=== PATIENT | female | born 1960 | race American Indian/Alaskan Native ===

== ENCOUNTER 2021-05-30 12:40 | Emergency (ER) | payer OTHER, MEDICAID, SELFPAY ==
[2021-05-30 13:14] VITALS: BP 135/78; PULSE 73; RESP 18; TEMP 36.6; O2SAT 97; BMI 31.1
--- NOTE | 2021-05-30 14:18 | ED.DENTAL ---
HPI - Dental/Oral General Chief complaint: Dental/Oral Stated complaint: mouth abscess Time Seen by Provider: 05/30/21 14:00 Source: patient Mode of arrival: ambulatory History of Present Illness HPI Narrative: 61-year-old female with no significant past medical history presenting to the ED complaining of right upper dental pain and suspected abscess x a couple days. Reports pain radiates to right ear. Denies posterior or pharyngeal swelling/difficulty swallowing, drooling or inability to handle secretions, fever, chills, cough, SOB, wheezing Admits had tooth replaced few months ago MD Complaint: tooth pain Related Data Previous Rx's Medication Instructions Recorded amoxicillin 875 mg-potassium 1 tab PO Q12H 7 Days #14 tab 05/30/21 clavulanate 125 mg tablet (Augmentin) hydrocodone 5 mg-acetaminophen 325 1 tab PO Q8H PRN 3 Days #9 tab 05/30/21 mg tablet Allergies Allergy/AdvReac Type Severity Reaction Status Date / Time No Known Allergies Allergy Verified 05/30/21 13:13 Review of Systems Review of Systems: Constitutional: No Fever, No Chills ENT/Mouth: No Ear Pain, No Nasal Congestion, No Hoarseness, No sore throat, No Rhinorrhea, No Swallowing Difficulty, +dental pain Cardiovascular: No Chest Pain, No SOB Respiratory: No Cough, No Sputum, No Wheezing Gastrointestinal: No Nausea, No Vomiting, No Diarrhea, No Constipation, No Abdominal pain Genitourinary: No Dysuria, No Urgency Musculoskeletal: No joint pain, No Myalgias, No Joint Swelling Skin: No Skin Lesions, No rash Neuro: No Weakness, No Numbness Yes all other systems are reviewed and are negative [facility] Past Medical History Attestation statement: The following information was validated with the patient. Social History Social History Advance Directives: No Advance Directives Information Provided: No Physical Exam Vital Signs: Vital Signs: Last Vital Signs Temp 97.9 F 05/30/21 13:14 Pulse 73 05/30/21 13:14 Resp 18 05/30/21 13:14 BP 135/78 05/30/21 13:14 Pulse Ox 97 05/30/21 13:14 Body Mass Index 31.1 Const: General: cooperative, healthy appearing and no acute distress Orientation/consciousness: patient oriented x3 Limitations: no limitations HENMT: Head: Yes normal to inspection and Yes atraumatic Ears: hearing grossly normal bilaterally General nose exam: Normal external nose present Face and sinus: Yes normal facial exam and Yes face symmetric Mouth: tongue normal, no drooling, normal lip and no muffled voice Teeth and gingiva: gingiva abnormal tender (above Right upper cuspid with erythema. No fluctuance/induration or cellulitis. No drainage. Mild swelling); Negative for without any purulent discharge Throat: Yes posterior oropharynx normal, Yes tonsils normal, Yes uvula midline, No peritonsillar mass, No uvula laterally displaced and No uvular edema Eyes: General: appearance normal, both eyes and all related structures EOM: EOMs intact bilaterally Neck: Neck: Yes normal visual inspection, Yes no lymphadenopathy, Yes no meningeal signs and Yes supple Resp: Effort & Inspection: normal respiratory effort and no respiratory distress Auscultation: clear to auscultation bilaterally Cardio: Rate: regular rate Heart sounds: S1 normal heart sound present and S2 normal heart sound present Skin: Rashes: no rashes Wounds: no wounds Neuro: General: patient oriented x3 and no meningeal signs Gait exam (Neuro): Normal gait present Extrem: General: Yes normal to inspection MDM - Dental/Oral MDM Narrative Medical decision making narrative: 61-year-old female with no significant past medical history presenting to the ED complaining of right upper dental pain and suspected abscess x a couple days. On exam vital signs stable, NAD/nontoxic, physical exam as above. Likely early gingival/dental abscess. Area not drainable at this time. No evidence of cellulitis Discussed with patient she needs to follow-up with her dentist KARMA, she verbalized understanding Medical Records Attestation: I reviewed the patient's medical records. Lab Data Attestation: I reviewed the patient's lab results. Discharge Plan Discharge Clinical Impression: Gingival abscess Patient Disposition: Home, Self-Care Instructions: Dental Abscess (ED), Mouth Care (ED) Additional Instructions: You Have the beginning of a dental abscess/interval obsess, Augmentin as an antibiotic, place take as prescribed [place] is no opiate pain medication, take when pain is severe for the next 3 days In addition take ibuprofen at home Please follow-up with a dentist as soon as possible If infection persists/worsens, area turns into a rossi, he developed fever or chills please return to the ED Prescriptions: New hydrocodone-acetaminophen 5-325 mg tablet 1 tab PO Q8H PRN (Reason: pain, severe) 3 Days Qty: 9 RF: 0 amoxicillin-pot clavulanate [Augmentin] 875-125 mg tablet 1 tab PO Q12H 7 Days Qty: 14 RF: 0 Referrals: Tim Rizo [Dentist] - 2 days Charly Marinelli DMD [Dentist] - 2 days George Foy DMD [Dentist] - 2 days Zoe Schaefer DMD [Dentist] - 2 days Lucas Bailey DDS [Physician] - 2 days Joce Jacob DMD [Physician] - 2 days Stand Alone Forms: Work/School Release Interventions: ED Discharge Assessment Last Done: 05/30/21 14:38 Discharge Date/Time: 05/30/21 14:39
[2021-05-30] MEDS: Amoxicillin/Potassium Clav 875 MG TABLET PO (14:31)
[2021-05-30] MEDS: NaPROXEN 500 MG TABLET PO (14:31)
== END 2021-05-30 14:39 | disposition home or self-care (01) ==
LOC: HO.ED 14:35
PROVIDERS: Emergency Provider Emergency Medicine
DX: K05.319 Chronic periodontitis, localized, unspecified severity (principal)
CPT/HCPCS: 99283; 99284

== ENCOUNTER 2021-06-04 16:26 | Emergency (ER) | payer OTHER, MEDICAID, SELFPAY ==
--- NOTE | ~2021-06-04 | XR_ITS ---
EXAMINATION: XR HAND, RIGHT CLINICAL INFORMATION: Fifth finger crush injury COMPARISON: None TECHNIQUE: PA, lateral, and oblique views of the right hand. FINDINGS: Marked degenerative changes are present at the DIP joints with milder degenerative changes at the PIP joints. There is a deformity present involving the index finger with ulnar deviation at the DIP joint. The MCP joints appear normal. Some minimal degenerative changes are present at the first PRISON joint is well as the radial carpal joints. XR/XR hand RT 2V IMPRESSION: Degenerative changes without acute injury.
--- NOTE | 2021-06-04 16:55 | ED.UPPEXIN ---
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 between the metal plate and sharp edge had small amount of bleeding complaining of pain in the right 5th finger Related Data Previous Rx's Medication Instructions Recorded amoxicillin 875 mg-potassium 1 tab PO Q12H 7 Days #14 tab 05/30/21 clavulanate 125 mg tablet (Augmentin) hydrocodone 5 mg-acetaminophen 325 1 tab PO Q8H PRN 3 Days #9 tab 05/30/21 mg tablet Allergies Allergy/AdvReac Type Severity Reaction Status Date / Time No Known Allergies Allergy Verified 05/30/21 13:13 Review of Systems Review of Systems: Yes all other systems are reviewed and are negative [facility] Social History Social History Advance Directives: No Advance Directives Information Provided: No Patient : No Physical Exam Vital Signs: Vital Signs: Last Vital Signs Temp 97.7 F 06/04/21 17:09 Pulse 73 06/04/21 17:09 Resp 16 06/04/21 17:09 BP 127/68 06/04/21 17:09 Pulse Ox 95 06/04/21 17:09 Body Mass Index 30.1 Const: General: comfortable Orientation/consciousness: patient oriented x3 Resp: Effort & Inspection: normal respiratory effort and able to speak in complete sentences Neuro: General: patient oriented x3 Extrem: Hand/finger images: 1. Tenderness at middle phalanx with superficial laceration no active bleeding no deformity MDM - Extremity Injury (Upper) MDM Narrative Medical decision making narrative: Patient has superficial laceration right 5th finger with contusion x-ray negative for fracture , laceration without any active bleeding approximated using Dermabond Procedures Laceration Laceration 1: Site: hand Side (If applicable): right Size (cm): 0.5 Description: linear Depth: simple, single layer Skin layer closed with: other (Dermabond) Discharge Plan Discharge Clinical Impression: Laceration of finger Qualifiers: Encounter type: initial encounter Finger: little finger Damage to nail status: without damage Foreign body presence: without foreign body Laterality: right Qualified Code(s): S61.216A - Laceration without foreign body of right little finger without damage to nail, initial encounter Patient Disposition: Home, Self-Care Instructions: Finger Laceration (ED) Additional Instructions: Local care as advised Prescriptions: No Action hydrocodone-acetaminophen 5-325 mg tablet 1 tab PO Q8H PRN (Reason: pain, severe) 3 Days Qty: 9 RF: 0 amoxicillin-pot clavulanate [Augmentin] 875-125 mg tablet 1 tab PO Q12H 7 Days Qty: 14 RF: 0 Stand Alone Forms: Work/School Release
[2021-06-04 17:09] VITALS: BP 127/68; PULSE 73; RESP 16; TEMP 36.5; O2SAT 95; BMI 30.1
== END 2021-06-04 18:24 | disposition home or self-care (01) ==
PROVIDERS: Emergency Provider Internal Medicine
DX: S61.216A Laceration without foreign body of right little finger without damage to nail, initial encounter (principal); W23.1XXA Caught, crushed, jammed, or pinched between stationary objects, initial encounter; Y93.G1 Activity, food preparation and clean up; Y92.233 Cafeteria of hospital as the place of occurrence of the external cause; Y99.0 Civilian activity done for income or pay
CPT/HCPCS: 12001; 73120; 99283

== ENCOUNTER 2021-06-11 10:32 | Outpatient (REF) | payer OTHER, SELFPAY ==
--- NOTE | ~2021-06-11 | XR_ITS ---
EXAMINATION: XR LUMBOSACRAL SPINE CLINICAL INFORMATION: Low back pain. COMPARISON: None TECHNIQUE: 4 views of the lumbar spine are obtained. FINDINGS: There is normal lumbar segmentation with 5 nonrib-bearing lumbar vertebrae of normal height and normal lumbar lordosis. There is no lumbar vertebral compression, spondylolisthesis, or destructive process. There is mild multilevel vertebral body spurring. Borderline disc narrowing is present at L2-L3 and L4-L5. The SI joints and visualized sacrum are unremarkable. XR/XR lumbar spine 2-3V IMPRESSION: 1. No lumbar vertebral compression or spondylolisthesis. 2. Mild degenerative disc changes L2-L3 and L4-L5.
== END 2021-06-11 10:33 | disposition home or self-care (01) ==
LOC: HO.XRAY 10:32
PROVIDERS: Visit Provider Family Medicine
DX: M51.37 Other intervertebral disc degeneration, lumbosacral region (principal)
CPT/HCPCS: 72100

== ENCOUNTER 2022-06-01 09:11 | Emergency (ER) | payer MEDICAID, SELFPAY ==
--- NOTE | ~2022-06-01 | CT_ITS ---
EXAMINATION: HEAD CT WITHOUT CONTRAST CERVICAL SPINE CT WITHOUT CONTRAST CLINICAL INFORMATION: Fall, pain. COMPARISON: None. TECHNIQUE: Contiguous axial imaging of the head was performed without the administration of IV contrast. Axial multidetector volumetric images were also performed through the cervical spine without contrast. Multiplanar reconstructed images in coronal and sagittal orientations were submitted. DOSE: 1119 mGy-cm FINDINGS: HEAD: There is artifact limiting evaluation of the inferior posterior fossa. Scattered areas of increased density in the subcalvarial brain parenchyma, suspected to be artifactual. There is no evidence of acute intracranial hemorrhage or territorial infarction. No abnormal mass-effect or midline shift. No extra-axial fluid collections. Castano to white matter differentiation is well preserved. The ventricles are normal in size and configuration. . No acute calvarial fracture. Left maxillary sinus mucocele/mucosal thickening. The sinuses otherwise and mastoid air cells are clear. CERVICAL SPINE: Cervical spine: There is anatomic alignment of the vertebral bodies and posterior elements. The atlantoaxial and atlantooccipital articulations are maintained. Vertebral body heights are maintained No evidence of acute fracture. Moderate to severe C5-C6 disc degeneration. No prevertebral soft tissue swelling. Visualized lung apices appear unremarkable. No suspicious thyroid findings.. CT/CT cervical spine wo IV con IMPRESSION: 1. No CT evidence of acute intracranial hemorrhage or edematous territorial infarction.. Artifact limiting evaluation. Short-term follow-up CT for reassessment as clinically warranted. 2. No acute fracture or malalignment in the cervical spine. 3. C5-C6 moderate to severe disc degeneration.
--- NOTE | ~2022-06-01 | XR_ITS ---
EXAMINATION: XR RIBS, RIGHT, PA CHEST CLINICAL INFORMATION: Status post fall with rib pain. COMPARISON: PET/CT scan dated 06/01/2022. TECHNIQUE: 3 views of the right ribs were obtained. FINDINGS: Lungs are clear. No consolidation, pneumothorax, or pleural effusion. The cardiomediastinal silhouette and pulmonary vasculature are normal. Osseous structures are unremarkable. Ribs are intact. No fractures are identified. XR/XR ribs RT min 3V w CXR1V IMPRESSION: Unremarkable examination.
--- NOTE | ~2022-06-01 | CT_ITS ---
EXAMINATION: CT CHEST, ABDOMEN AND PELVIS WITHOUT CONTRAST CLINICAL INFORMATION: Status post fall with rib cage and buttock pain. COMPARISON: None TECHNIQUE: Multidetector volumetric imaging was performed of the chest, abdomen and pelvis without administration of oral or intravenous contrast. Sagittal and coronal reformatted images were obtained on the technologist's workstation. Lack of intravenous and oral contrast limits visceral evaluation. This CT examination was performed using dose optimization techniques as appropriate, variously including the following: *Automated exposure control *Adjustment of mA and/or kV according to patient size (this includes techniques or standardized protocols for targeted exams where dose is matched to indication/reason for exam; i.e. extremities or head) DLP: 974 mGy-cm FINDINGS: CHEST: LUNGS/PLEURA/AIRWAYS: No focal infiltrates, pleural effusions or pneumothorax. No significant/suspicious pulmonary nodules. The airways are patent. MEDIASTINUM: The visualized thyroid gland shows a nodule posteriorly in the lower pole measuring 1.5 cm (image 3, series 5). The thoracic aorta shows minimal calcifications in the arch without significant dilatation. No coronary artery calcification. No pericardial effusion. CHEST LYMPH NODES: No lymphadenopathy. SOFT TISSUES: Unremarkable. ABDOMEN/PELVIS: LIVER, GALLBLADDER, AND BILIARY TREE: Unremarkable. PANCREAS: Unremarkable. SPLEEN: Unremarkable. ADRENAL GLANDS: Unremarkable. KIDNEYS AND URETERS: The kidneys are normal in size, shape, and attenuation. No hydronephrosis, hydroureter, or calculi seen. No perinephric stranding. BLADDER: Unremarkable. GASTROINTESTINAL TRACT: The stomach, small bowel and appendix are unremarkable. The colon shows mild diverticulosis distally without surrounding abnormality. No rectal abnormality. LYMPH NODES: No lymphadenopathy. VASCULAR: Unremarkable. PELVIC VISCERA: Status post hysterectomy. No adnexal abnormality. MUSCULOSKELETAL: No acute fracture. Minimal to mild multilevel marginal osteophyte formation in the lumbar spine. SOFT TISSUES: Unremarkable. CT/CT abdomen pelvis wo IV con IMPRESSION: 1. No evidence for acute traumatic injury. 2. Incidental findings detailed above without associated abnormality.
--- NOTE | ~2022-06-01 | XR_ITS ---
EXAMINATION: XR HIP, RIGHT CLINICAL INFORMATION: Hip and pelvic pain status post fall. COMPARISON: None TECHNIQUE: Two views of the right hip. FINDINGS: Minimal right hip degenerative joint changes are seen. There is no acute fracture or dislocation. The bony pelvis is intact with the soft tissues are unremarkable. XR/XR hip RT w [id number] IMPRESSION: Minimal right hip osteoarthritis. No acute fracture.
--- NOTE | ~2022-06-01 | XR_ITS ---
EXAMINATION: XR HAND, LEFT CLINICAL INFORMATION: Finger pain status post fall. COMPARISON: None TECHNIQUE: PA, lateral, and oblique views of the left hand. An indicator arrow points to the second digit distally. FINDINGS: Mild to moderate interphalangeal, first carpal metacarpal and triscaphe degenerative joint changes are seen. There is no acute fracture or dislocation. The soft tissues are unremarkable. There is no radiopaque foreign body. XR/XR hand LT min 3V IMPRESSION: [id number] degenerative joint changes most consistent with osteoarthritis. No acute abnormality. Specifically, the second digit appears intact.
--- NOTE | ~2022-06-01 | XR_ITS ---
EXAMINATION: XR FOOT, RIGHT CLINICAL INFORMATION: Fifth metatarsal pain status post fall. COMPARISON: None TECHNIQUE: AP, lateral, and oblique views of the right foot. An indicator arrow points to the fifth metatarsal. FINDINGS: There is no acute fracture or dislocation. The base of the fifth metatarsal is intact. Minimal degenerative spurring is seen in this region. The tarsal bones are normally aligned. Very small plantar and small retrocalcaneal spurs are seen. The soft tissues are unremarkable. XR/XR foot RT min 3V IMPRESSION: No definitive acute abnormality. Specifically, the fifth metatarsal is intact. Mild degenerative spurring as detailed above.
--- NOTE | ~2022-06-01 | CT_ITS ---
EXAMINATION: HEAD CT WITHOUT CONTRAST CERVICAL SPINE CT WITHOUT CONTRAST CLINICAL INFORMATION: Fall, pain. COMPARISON: None. TECHNIQUE: Contiguous axial imaging of the head was performed without the administration of IV contrast. Axial multidetector volumetric images were also performed through the cervical spine without contrast. Multiplanar reconstructed images in coronal and sagittal orientations were submitted. DOSE: 1119 mGy-cm FINDINGS: HEAD: There is artifact limiting evaluation of the inferior posterior fossa. Scattered areas of increased density in the subcalvarial brain parenchyma, suspected to be artifactual. There is no evidence of acute intracranial hemorrhage or territorial infarction. No abnormal mass-effect or midline shift. No extra-axial fluid collections. Castano to white matter differentiation is well preserved. The ventricles are normal in size and configuration. . No acute calvarial fracture. Left maxillary sinus mucocele/mucosal thickening. The sinuses otherwise and mastoid air cells are clear. CERVICAL SPINE: Cervical spine: There is anatomic alignment of the vertebral bodies and posterior elements. The atlantoaxial and atlantooccipital articulations are maintained. Vertebral body heights are maintained No evidence of acute fracture. Moderate to severe C5-C6 disc degeneration. No prevertebral soft tissue swelling. Visualized lung apices appear unremarkable. No suspicious thyroid findings.. CT/CT head/brain wo IV con IMPRESSION: 1. No CT evidence of acute intracranial hemorrhage or edematous territorial infarction.. Artifact limiting evaluation. Short-term follow-up CT for reassessment as clinically warranted. 2. No acute fracture or malalignment in the cervical spine. 3. C5-C6 moderate to severe disc degeneration.
[2022-06-01 09:18] VITALS: BP 137/77; PULSE 90; RESP 15; TEMP 36.6; O2SAT 97; BMI 31.8
--- NOTE | 2022-06-01 10:02 | PC.NURSE ---
pt to radiology will assess when she returns
--- NOTE | 2022-06-01 10:30 | ED.FALL ---
HPI - Fall General Chief Complaint: Fall Stated Complaint: fall, back, rib pain,blood in urine Time Seen by Provider: 06/01/22 09:41 Source: patient Mode of arrival: ambulatory Limitations: no limitations History of Present Illness HPI Narrative: Debra Ga is a 62-year-old female with no pertinent past medical history that presents to the emergency department today with a chief complaint of falling down 1 flight of stairs yesterday afternoon at her home. She indicates that she slipped down a flight of stairs in her socks. She says that she hit her head, ribs, and caught her fingers in the the railing. She denies losing consciousness and was able to get relatively quickly after the fall. She denies being on any blood thinners. She says today the pain has been constant and has gotten steadily worse. She describes her pain to be sharper with movement and describes generalized stiffness all over her body. She rates the pain today as a 20/10. She has tried icing and using Tylenol of which neither have helped. She reports that she had a headache yesterday that resolved with two Tylenol and Excedrin. She also endorses musculoskeletal pain, fatigue, and some blood in her urine. She does also describe that she has chronic shortness of breath but she believes this to be unrelated to her fall. She denies fevers, sore throat, chest pain, nausea, vomiting, diarrhea or constipation. She came to the emergency room today because her fiance is concerned about her pain. complaint: fall Onset (ago): day(s) (1) Fall from: standing Place fall occurred: home Loss of consciousness: none Symptoms prior to fall: none Context: tripped/slipped Location of injury: head, neck, chest and back Location of injury - extremities: left: hand and lower leg (hip) and right: foot Severity: severe Severity scale (1-10): >10 Quality: sharp and aching Associated symptoms (after fall): headache Related Data Previous Rx's Medication Instructions Recorded amoxicillin 875 mg-potassium 1 tab PO Q12H 7 days #14 tabs 05/30/21 clavulanate 125 mg tablet (Augmentin) hydrocodone 5 mg-acetaminophen 325 1 tab PO Q8H PRN pain, severe 3 05/30/21 mg tablet days #9 tabs acetaminophen 500 mg tablet 1,000 mg PO QID PRN fever or pain 06/01/22 (Tylenol Extra Strength) #10 tabs cyclobenzaprine 10 mg tablet 10 mg PO Q8H #10 tabs 06/01/22 oxycodone 5 mg tablet 5 mg PO Q6H PRN pain #10 tabs 06/01/22 Allergies Allergy/AdvReac Type Severity Reaction Status Date / Time No Known Allergies Allergy Verified 05/30/21 13:13 Review of Systems Review of Systems: Constitutional : No Weight loss, No Fever, No Chills, No Night Sweats, Yes Fatigue, No Malaise ENT/Mouth : No Hearing loss, No Ear Pain, No Nasal Congestion, No Sinus Pain, No Hoarseness, No sore throat, No Rhinorrhea, No Swallowing Difficulty Eyes: No Eye Pain, No Swelling, No Redness, No Foreign Body, No Discharge, No Vision Changes Cardiovascular : No Chest Pain, + Chronic SOB, No Dyspnea on Exertion, No Orthopnea, No Edema, No Palpitations Respiratory : No Cough, No Sputum, No Wheezing, No Smoke Exposure, No Dyspnea Gastrointestinal : No Nausea, No Vomiting, No Diarrhea, No Constipation, No abdominal Pain, No Hematochezia, No Melena Genitourinary : no irregular bleeding, No Dysuria, No Urinary Frequency, + Hematuria, No Urinary Incontinence, No Urgency, No Flank Pain, No Urinary Flow Changes, No Hesitancy Musculoskeletal : + multiple joint pain, + Myalgias, No Joint Swelling, + Cervical and Lumbar spine tenderness, + generalized paraspinal tenderness Skin : No Skin Lesions, No rash, Neuro : No Weakness, No Numbness, No Paresthesias, No Loss of Consciousness, No Dizziness, + Headache Psych : No Anxiety/Panic, Yes Depression, No SI/HI/AH/VH, No Social Issues, Heme/Lymph: Yes Bruising, No Bleeding,No Lymphadenopathy Endocrine : No Polyuria, No Polydipsia, No Temperature Intolerance Yes all other systems are reviewed and are negative Musculoskeletal: Comments: Patient complains of generalized pain and stiffness [facility] Past Medical History Attestation statement: The following information was validated with the patient. [facility] Narrative: Past medical history: Depression, spasmodic bladder, congenital heart murmur, Ferguson's palsy (left side) Surgical history: Hysterectomy at age 32, bladder surgery Social history: Smokes cigarettes, half a pack a day, last 4 years, previously quit for 12 years Source: old records reviewed and nursing notes reviewed Medical History Depression Surgical History H/O: hysterectomy History of bladder surgery Social History Social History Alcohol intake: never Smoked in Last 30 Days: Yes Use of substances other than those prescribed or required for medical reasons: No Advance Directives: No Advance Directives Information Provided: No Patient : No Physical Exam Vital Signs: Vital Signs: Last Vital Signs Temp 98 F 06/01/22 09:18 Pulse 90 06/01/22 09:18 Resp 15 06/01/22 09:18 BP 137/77 06/01/22 09:18 Pulse Ox 97 06/01/22 09:18 O2 Del Method 06/01/22 09:18 BMI result Body Mass Index 31.8 vital signs have been reviewed as normal and appeared to be correct. Blood pressure normal. Heart rate normal. Respiration rate normal. Temperature normal. Oxygen saturation normal. Appearance: Alert. Oriented X3. No acute distress. Head: Normal external exam. Normocephalic. Atraumatic. No Falcon signs noted. No raccoon eyes noted Eyes: PERRLA. EOMI. Conjunctiva and sclera normal. Eyelids normal. ENT: EAC normal. TM's Normal. No septal hematoma noted. No hemotympanum noted. Pharynx normal. Uvula midline. Moist mucous membranes. No lesions/ulcerations or masses noted on the tongue. Normal voice. No trismus noted. No drooling noted. No muffled voice noted. Neck: Normal inspection. Neck supple. FROM. No adenopathy. Thyroid Normal. No tracheal deviation noted. No crepitus is noted. No meningeal signs. No neck mass noted. No signs of trauma noted. CVS: Normal heart rate and rhythm. Pulses normal throughout. Murmur noted. Respiratory: No respiratory distress. Painless inspiration. Breath sounds normal. No wheezes/rales/rhonchi noted. Chest tender to palpation. No crepitus is noted. No accessory muscle usage noted or decreased air movement noted. No signs of trauma. Abdomen: Soft and Tender. Nondistended. No guarding. No rigidity. Bowel sounds normal in all 4 quadrants. No distention noted. No organomegaly noted. No visible injury noted. No rebound tenderness. Negative Rovsing sign. Negative obturator's sign. Negative psoas sign. Negative Ospina sign. Back: No CVA tenderness. Full range of motion noted. Tenderness on cervical and lumbar spine on palpation. Paraspinal tenderness noted. No signs of trauma. Patient neuro intact bilaterally and distally on all 4 extremities. Patient's reflexes intact bilaterally and distally on all 4 extremities. No rashes/lesion/induration/fluctuance or signs of infection noted. Skin: Skin warm and dry. Normal skin color. Normal skin turgor. No rashes/lesions/lacerations noted. Large contusion noted on right buttock., Multiple small lacerations on bilateral first three phalanges. Extremities: Patient with tenderness palpation to the right hip although has full range of motion of the right hip no obvious ligamentous or tendon injury noted. Patient with mild tenderness palpation to the right foot at the 5th metatarsal no obvious ligamentous or tendon injury noted to the right toe/foot/ankle joint. Achilles tendon is intact not ruptured. Negative Kelley test. Patient mild tenderness palpation to the left hand with superficial abrasions at the distal aspect. She has full range of motion of all finger/hand and wrist joint. No obvious ligamentous or tendon injury noted. Patient moving all extremities. Otherwise all other extremities exhibit normal range of motion nontender. No lower extremity edema. No calf tenderness is noted. Neuro: Oriented X 3. No motor deficit. No sensory deficit. Reflexes normal. Normal steady gait. No focal neuro deficits noted. CN's II-XII intact bilaterally? Vascular: + radial pulses/+ 2 distal pedal pulses/+2 dorsalis pedis b/l. Normal cap refill. No cyanosis noted to upper extremity nails and lower extremity toes nails. Const: General: cooperative, alert and awake Orientation/consciousness: oriented to person and oriented to place HEENT: Head: Yes normal to inspection and Yes No palpable skull fracture present Ears: hearing grossly normal bilaterally and external ears normal General nose exam: Normal external nose present Face and sinus: Yes normal facial exam and Yes face symmetric Throat: Yes posterior oropharynx normal Eyes: General: appearance normal, both eyes and all related structures Pupils: Equal, round and reactive pupils present EOM: EOMs intact bilaterally Neck: Neck: Yes normal visual inspection Thyroid: Thyroid normal Chest: Chest palpation & inspection: normal inspection of the chest and tenderness Resp: Effort & Inspection: normal respiratory effort and able to speak in complete sentences Auscultation: clear to auscultation bilaterally Cardio: Rate: regular rate Rhythm: regular rhythm Heart sounds: Murmur heart sound present GI: Auscultation: normal bowel sounds Back/Spine/Pelvis: Cervical Spine: cervical muscular tenderness and Cervical spine tenderness Thoracic/Lumbar Spine: thoracic and lumbar spine normal to inspection, paraspinal muscle tenderness and lumbar spinal tenderness Skin: General skin exam: ecchymosis (Right buttock) Trauma: laceration (Bilateral phalanges) Neuro: General: oriented to person and oriented to place Cranial nerves: Yes CN's II-XII intact bilaterally and Yes Equal, round and reactive pupils present Motor exam (neuro): 5/5 motor strength present throughout Course Course Course Narrative: Debra Ga is a 62-year-old female who presented to the emergency department today complaining of a fall yesterday afternoon down 1 flight of stairs. She did hit her head and ribs falling down the stairs denies loss of consciousness. Physical exam was notable for for diffuse muscle tenderness particularly around the ribs and spine, cervical spine tenderness around C5-C6, and lumbar spine a tenderness around L2-L3, and unspecified heart murmur which she says she has had since childhood. Multiple contusions noted. Difficulty sitting on bed. The rest of the exam was unremarkable. CT scan of brain/cervical spine/chest/abdomen pelvis without IV contrast negative for any acute processes. Patient was noted to have a thyroid nodule therefore printed out the results and handed to the patient so that she should follow-up with her PCP regarding this. Rib x-rays/left hand x-ray/right hip and right foot x-ray negative for any acute processes only chronic changes. UA within normal limits revealed blood otherwise no evidence of UTI. Patient's labs are all within normal limits. Therefore at this time will DC home with symptomatic treatment instructions return if any new or worsening symptoms follow up with primary care provider. Patient understands agrees with this plan. Medications Administered Discontinued Medications Generic Name Dose Route Start Last Admin Trade Name Freq PRN Reason Stop Dose Admin Acetaminophen 975 mg 06/01/22 11:00 06/01/22 12:12 Acetaminophen 325 Mg Tablet PO 06/01/22 11:01 975 mg ONCE ONE Administration Cyclobenzaprine HCl 10 mg 06/01/22 11:01 06/01/22 12:11 Cyclobenzaprine Hcl 10 Mg Tablet PO 06/01/22 11:02 10 mg ONCE ONE Administration Oxycodone HCl 5 mg 06/01/22 11:00 06/01/22 12:12 Oxycodone Hcl Immed Release 5 Mg Tablet PO 06/01/22 11:01 5 mg ONCE ONE Administration MDM - Fall Medical Records Attestation: I reviewed the patient's medical records. Lab Data Attestation: I reviewed the patient's lab results. Result diagrams: 06/01/22 10:54 06/01/22 10:54 Labs: Lab Results 06/01/22 06/01/22 06/01/22 Range/Units 10:23 10:54 10:54 WBC 7.0 (4.8-10.8) X10*3/uL RBC 4.51 (4.20-5.50) X10*6/uL Hgb 14.5 (12.0-16.0) g/dl Hct 42.3 (37.0-47.0) % MCV 93.8 (80.0-98.0) fL MCH 32.2 (27.0-33.0) pg MCHC 34.3 (31.0-35.0) g/dl RDW 12.8 (11.0-16.0) % Plt Count 209 (160-400) X10*3/uL MPV 10.1 (9.4-12.3) fL Immature Gran % (Auto) 0.1 (0.0-0.4) % Neut % (Auto) 52.5 (45-73) % Lymph % (Auto) 35.0 (20-40) % [place] % (Auto) 9.3 (2-11) % Eos % (Auto) 2.7 (0-4) % Baso % (Auto) 0.4 (0-2) % Lymph # (Auto) 2.4 (1.2-4.9) X10*3/uL [place] # (Auto) 0.7 (0.1-1.2) X10*3/uL Eos # (Auto) 0.2 (0.0-0.4) X10*3/uL Baso # (Auto) 0.0 (0.0-0.2) X10*3/uL Abs Immat Gran (auto) 0.01 (0.00-0.03) X10*3/uL Absolute Neuts (auto) 3.7 (2.0-8.3) x10*3/uL Absolute Nucleated RBC 0.000 (0.0-0.012) X10*3/uL Nucleated RBC % (auto) 0.0 (0.0-0.2) /100WBC PT (10.0-13.1) SEC INR (0.9-1.1) Sodium 140 (135-145) mmol/L Potassium 4.7 (3.3-5.1) mmol/L Chloride 104 (96-108) mmol/L Carbon Dioxide 26 (22-29) mmol/L Anion Gap 15 (12-20) BUN 14 (9-16) mg/dL Creatinine 0.83 (0.5-1.4) mg/dL Estim Creat Clear Calc 72.9 Estimated GFR > 60 Random Glucose 98 (60-115) mg/dL Calcium 9.2 (8.4-10.2) mg/dL Total Bilirubin (0.0-1.0) mg/dL Direct Bilirubin (0.0-0.5) mg/dL AST (5-31) U/L ALT (0-31) U/L Alkaline Phosphatase (39-117) U/L B-Natriuretic Peptide (<100) pg/mL Total Protein (6.5-8.0) g/dL Albumin (3.5-5.0) g/dL Urine Color Yellow Urine Appearance Clear Urine pH 7.0 (5.0-9.0) Ur Specific [place] 1.015 (1.005-1.025) Urine Protein Negative (Neg-Trace) mg/dL Urine Glucose (UA) Negative (Negative) mg/dL Urine Ketones Negative (Negative) mg/dL Urine Blood Moderate (2+) H (Negative) Urine Nitrite Negative (Negative) Ur Leukocyte Esterase Negative (Negative) Urine RBC 11-20 H (0-2) /HPF Urine WBC 0-5 (0-5) /HPF Ur Squamous Epith Cells 0-2 (0-2) /HPF Urine Bacteria None Seen (None Seen) Hyaline Casts 0-2 (0-2) /LPF 06/01/22 06/01/22 06/01/22 Range/Units 10:54 10:54 10:54 WBC (4.8-10.8) X10*3/uL RBC (4.20-5.50) X10*6/uL Hgb (12.0-16.0) g/dl Hct (37.0-47.0) % MCV (80.0-98.0) fL MCH (27.0-33.0) pg MCHC (31.0-35.0) g/dl RDW (11.0-16.0) % Plt Count (160-400) X10*3/uL MPV (9.4-12.3) fL Immature Gran % (Auto) (0.0-0.4) % Neut % (Auto) (45-73) % Lymph % (Auto) (20-40) % [place] % (Auto) (2-11) % Eos % (Auto) (0-4) % Baso % (Auto) (0-2) % Lymph # (Auto) (1.2-4.9) X10*3/uL [place] # (Auto) (0.1-1.2) X10*3/uL Eos # (Auto) (0.0-0.4) X10*3/uL Baso # (Auto) (0.0-0.2) X10*3/uL Abs Immat Gran (auto) (0.00-0.03) X10*3/uL Absolute Neuts (auto) (2.0-8.3) x10*3/uL Absolute Nucleated RBC (0.0-0.012) X10*3/uL Nucleated RBC % (auto) (0.0-0.2) /100WBC PT 11.5 (10.0-13.1) SEC INR 1.0 (0.9-1.1) Sodium (135-145) mmol/L Potassium (3.3-5.1) mmol/L Chloride (96-108) mmol/L Carbon Dioxide (22-29) mmol/L Anion Gap (12-20) BUN (9-16) mg/dL Creatinine (0.5-1.4) mg/dL Estim Creat Clear Calc Estimated GFR Random Glucose (60-115) mg/dL Calcium (8.4-10.2) mg/dL Total Bilirubin 0.3 (0.0-1.0) mg/dL Direct Bilirubin < 0.2 (0.0-0.5) mg/dL AST 17 (5-31) U/L ALT 23 (0-31) U/L Alkaline Phosphatase 107 (39-117) U/L B-Natriuretic Peptide < 10 (<100) pg/mL Total Protein 7.1 (6.5-8.0) g/dL Albumin 4.4 (3.5-5.0) g/dL Urine Color Urine Appearance Urine pH (5.0-9.0) Ur Specific [place] (1.005-1.025) Urine Protein (Neg-Trace) mg/dL Urine Glucose (UA) (Negative) mg/dL Urine Ketones (Negative) mg/dL Urine Blood (Negative) Urine Nitrite (Negative) Ur Leukocyte Esterase (Negative) Urine RBC (0-2) /HPF Urine WBC (0-5) /HPF Ur Squamous Epith Cells (0-2) /HPF Urine Bacteria (None Seen) Hyaline Casts (0-2) /LPF Discharge Plan Discharge Clinical Impression: Fall, Thyroid nodule, Head injury, Acute cervical sprain, Back strain, Multiple contusions, Strain of right hip, Finger sprain, Foot sprain Patient Disposition: Home, Self-Care Instructions: Muscle Strain (ED), Head Injury (ED), Thyroid Nodules (ED) Prescriptions: New acetaminophen [Tylenol Extra Strength] 500 mg tablet 1,000 mg PO QID PRN (Reason: fever or pain) Qty: 10 0RF cyclobenzaprine 10 mg tablet 10 mg PO Q8H Qty: 10 0RF oxycodone 5 mg tablet 5 mg PO Q6H PRN (Reason: pain) Qty: 10 0RF Rx Instructions: Partial Fill upon patient request. No Action hydrocodone-acetaminophen 5-325 mg tablet 1 tab PO Q8H PRN (Reason: pain, severe) 3 Days Qty: 9 0RF amoxicillin-pot clavulanate [Augmentin] 875-125 mg tablet 1 tab PO Q12H 7 Days Qty: 14 0RF Referrals: Physician,Unknown J [Primary Care Provider] - (your pcp) Stand Alone Forms: Work/School Release Interventions: ED Discharge Assessment Last Done: 06/01/22 13:22 Discharge Date/Time: 06/01/22 13:22
[2022-06-01 10:31] LABS: Appearance Urine Clear; Color Urine Yellow; Glucose Urine UA Negative (Negative); Leukocyte Esterase Urine Negative (Negative); Nitrite Urine Negative (Negative); Specific Gravity - Urine 1.015 (1.005-1.025); UMIC TRIGGER UACC YES; Urine Blood Moderate (2+) (Negative); Urine Ketones Negative (Negative); Urine Protein Negative (Neg-Trace)
[2022-06-01 10:36] LABS: Bacteria Urine None Seen (None Seen); Hyaline Casts Urine 0-2 /LPF (0-2); Squamous Epithelial Cell Urine 0-2 /HPF (0-2); WBC Urine 0-5 /HPF (0-5)
[2022-06-01 10:58] LABS: MANUAL DIFF FLAG NO
[2022-06-01 11:00] LABS: Basophils Percent Auto 0.4 % (0-2); Eosinophils Absolute Auto 0.2 X10*3/uL (0.0-0.4); Eosinophils Percent Auto 2.7 % (0-4); Hematocrit 42.3 % (37.0-47.0); Hemoglobin 14.5 g/dl (12.0-16.0); Imm Gran Abs Auto 0.01 X10*3/uL (0.00-0.03); Imm Gran Pct Auto 0.1 % (0.0-0.4); Lymphocytes Absolute Auto 2.4 X10*3/uL (1.2-4.9); Mean Corpuscular HGB Conc 34.3 g/dl (31.0-35.0); Mean Corpuscular Hemoglobin 32.2 pg (27.0-33.0); Mean Corpuscular Volume 93.8 fL (80.0-98.0); Mean Platelet Volume 10.1 fL (9.4-12.3); Monocytes Absolute Auto 0.7 X10*3/uL (0.1-1.2); Monocytes Percent Auto 9.3 % (2-11); Neutrophils Absolute Auto 3.7 x10*3/uL (2.0-8.3); Neutrophils Percent Auto 52.5 % (45-73); Platelet Count 209 X10*3/uL (160-400); Red Blood Count 4.51 X10*6/uL (4.20-5.50); Red Cell Distribution Width 12.8 % (11.0-16.0)
[2022-06-01 11:05] LABS: Prothrombin Time 11.5 SEC (10.0-13.1)
[2022-06-01 11:24] LABS: Anion Gap 15 (12-20); Blood Urea Nitrogen 14 mg/dL (9-16); Calcium 9.2 mg/dL (8.4-10.2); Carbon Dioxide 26 mmol/L (22-29); Chloride 104 mmol/L (96-108); Creatinine Clr Calc Pharmacy 72.9; Estimated Glomerular Filt Rate > 60; Glucose Random 98 mg/dL (60-115); Potassium 4.7 mmol/L (3.3-5.1); Sodium 140 mmol/L (135-145)
[2022-06-01 11:25] LABS: Alanine Aminotransferase 23 U/L (0-31); Albumin Level 4.4 g/dL (3.5-5.0); Alkaline Phosphatase 107 U/L (39-117); Aspartate Amino Transferase 17 U/L (5-31); Bilirubin Direct < 0.2 mg/dL (0.0-0.5); Bilirubin Total 0.3 mg/dL (0.0-1.0); Total Protein 7.1 g/dL (6.5-8.0)
[2022-06-01 11:31] LABS: B Type Natriuretic Peptide < 10 pg/mL (<100)
[2022-06-01] MEDS: Cyclobenzaprine HCl 10 MG TABLET PO (12:11)
[2022-06-01] MEDS: Acetaminophen 325 MG TABLET 975 MG PO (12:12)
[2022-06-01] MEDS: oxyCODONE HCl Immed Release 5 MG TABLET PO (12:12)
== END 2022-06-01 13:22 | disposition home or self-care (01) ==
PROVIDERS: Physician Assistant Medical; Emergency Provider Emergency Medicine Emergency Medical Services
DX: S09.90XA Unspecified injury of head, initial encounter (principal); S13.4XXA Sprain of ligaments of cervical spine, initial encounter; S39.012A Strain of muscle, fascia and tendon of lower back, initial encounter; S76.011A Strain of muscle, fascia and tendon of right hip, initial encounter; S63.92XA Sprain of unspecified part of left wrist and hand, initial encounter; S93.601A Unspecified sprain of right foot, initial encounter; S30.0XXA Contusion of lower back and pelvis, initial encounter; S61.012A Laceration without foreign body of left thumb without damage to nail, initial encounter; S61.011A Laceration without foreign body of right thumb without damage to nail, initial encounter; S61.210A Laceration without foreign body of right index finger without damage to nail, initial encounter; S61.211A Laceration without foreign body of left index finger without damage to nail, initial encounter; S61.212A Laceration without foreign body of right middle finger without damage to nail, initial encounter; S61.213A Laceration without foreign body of left middle finger without damage to nail, initial encounter; S60.512A Abrasion of left hand, initial encounter; W10.8XXA Fall (on) (from) other stairs and steps, initial encounter; E04.1 Nontoxic single thyroid nodule; R01.1 Cardiac murmur, unspecified; R06.02 Shortness of breath; Y93.9 Activity, unspecified; Y92.018 Other place in single-family (private) house as the place of occurrence of the external cause; Y99.9 Unspecified external cause status
CPT/HCPCS: 36415; 70450; 71101; 71250; 72125; 73130; 73502; 73630; 74176; 80048; 80076; 81001; 83880; 85025; 85610; 99284

== ENCOUNTER 2023-03-14 10:57 | Emergency (ER) | payer MEDICAID, SELFPAY ==
--- NOTE | ~2023-03-14 | XR_ITS ---
EXAMINATION: XR CHEST CLINICAL INFORMATION: Positive Covid COMPARISON: CT chest from 06/01/2022 TECHNIQUE: 2 views of the chest were obtained. FINDINGS: No focal consolidation. No pneumothorax. Trachea is midline. Cardiac mediastinal silhouette is not enlarged. No large pleural effusion. Osseous structures are intact. Soft tissues are unremarkable. XR/XR chest 2V IMPRESSION: No acute cardiopulmonary process.
[2023-03-14 11:06] VITALS: BP 135/70; PULSE 80; RESP 18; TEMP 36.8; O2SAT 96; BMI 31.9
--- NOTE | 2023-03-14 11:15 | ED_ITS ---
HPI - General Adult General Chief complaint: Upper Respiratory Symptoms Stated complaint: covid+ / sob / dr sent for chest xr Time Seen by Provider: 03/14/23 11:50 Source: patient Mode of arrival: ambulatory Limitations: no limitations History of Present Illness HPI narrative: 63 yo female presents to the ER for evaluation of cough, SOB, fever, chills, headaches, body aches, fatigue, decreased PO intake for the last 6 days. She took a COVID test at home and it was positive. Her PCP sent her to the ER for CXR today. She is fatigued with exertion like walking up stairs and needs to rest. No chest pains other than when she is coughing. This is her 3rd time w/ COVID and she has been vaccinated x2. MD complaint: COVID symptoms Onset (ago): day(s) (6) Pain Consistency: constant Relieving factors: rest Exacerbating factors: movement Associated symptoms: cough, fever/chills, headaches, loss of appetite, malaise, shortness of breath and weakness Treatments prior to arrival: none Related Data Previous Rx's Medication Instructions Recorded amoxicillin 875 mg-potassium 1 tab PO Q12H 7 days #14 tabs 05/30/21 clavulanate 125 mg tablet (Augmentin) hydrocodone 5 mg-acetaminophen 325 1 tab PO Q8H PRN pain, severe 3 05/30/21 mg tablet days #9 tabs acetaminophen 500 mg tablet 1,000 mg PO QID PRN fever or pain 06/01/22 (Tylenol Extra Strength) #10 tabs cyclobenzaprine 10 mg tablet 10 mg PO Q8H #10 tabs 06/01/22 oxycodone 5 mg tablet 5 mg PO Q6H PRN pain #10 tabs 06/01/22 albuterol sulfate 90 mcg/actuation 2 puff inhalation Q6H PRN 03/14/23 aerosol inhaler shortness of breath or wheezing #8.5 grams benzonatate 100 mg capsule 100 mg PO TID PRN cough #30 caps 03/14/23 prednisone 20 mg tablet 40 mg PO DAILY #10 tabs 03/14/23 Allergies Allergy/AdvReac Type Severity Reaction Status Date / Time No Known Allergies Allergy Verified 05/30/21 13:13 Review of Systems 2 Review of Systems: Yes all other systems are reviewed and are negative PMFSH Past Medical History Medical History Depression Surgical History H/O: hysterectomy History of bladder surgery Social History Social History Alcohol intake: never Advance Directives: No Advance Directives Information Provided: No Physical Exam ED Vital Signs: Vital Signs - 24 hr 03/14/23 11:06 Temperature 98.3 F Pulse Rate 80 Respiratory Rate 18 Blood Pressure 135/70 Pulse Oximetry 96 Oxygen Delivery Method Room Air BMI result Body Mass Index 31.9 Appearance: Alert. Oriented X3. No acute distress. Head: normocephalic, atraumatic. Eyes: Pupils equal, round and reactive to light. ENT: Pharynx normal. No tonsillar swelling or exudate. Neck: Normal inspection. Neck supple. CVS: Normal heart rate and rhythm. Pulses normal. Respiratory: No respiratory distress. Breath sounds normal. Abdomen: Soft and nontender. +BS x4 Skin: Skin warm and dry. Normal skin color. Normal skin turgor. No rashes. Extremities: No lower extremity edema. No joint swelling. Neuro/psych: Oriented X 3. No motor deficit. No sensory deficit. CN II-XII intact. Normal speech and cognition. Steady gait Course Course Course Narrative: This is an RME: Additional HPI, ROS, PE not included below will be deferred to primary provider. This is a 89-y[age]-female, with a history of depression, presenting to the emergency department with complaints of headaches, productive cough with green colored sputum, body aches, and sore throat x 5 days. Had +covid testing at home friday. No chest pain. Has been taking nyquil without any relief. VSS. Lungs CTAB Plan: CXR ordered. Medical Decision Making Medical Decision Making MDM Narrative: male presents the ER for evaluation of shortness of breath and productive cough after she was found to be COVID positive 6 days ago. She reports some brown sputum, no hemoptysis. She arrived to the ER with normal vital signs, no tachypnea, tachycardia or hypoxia. Her lungs are clear on examination. Her chest x-ray done today shows clear lungs, no evidence of pneumonia. She may have a viral bronchitis due to COVID. Will prescribe steroids and antitussive along with albuterol inhaler as needed. She will follow-up with her primary care doctor. We did discuss return precautions. Stable for discharge home Differential Diagnosis Differential Diagnoses: The differential diagnosis associated with the presentation includes covid-19, bronchitis, PNA, less likely PE or ACS Admission/Observation Consideration of admission/observation: Escalation of care including admission/observation considered 63 yo presenting with SOB and chest discomfort Independent Interpretation I performed an independent interpretation of an: Plain X-Ray Interpretation: cxr reviewed - clear lungs, no PNA Radiology Impression Discussion of test interpretation with radiology: I have reviewed the radiologist's reading. Radiologist Impression: EXAMINATION: XR CHEST CLINICAL INFORMATION: Positive Covid COMPARISON: CT chest from 06/01/2022 TECHNIQUE: 2 views of the chest were obtained. FINDINGS: No focal consolidation. No pneumothorax. Trachea is midline. Cardiac mediastinal silhouette is not enlarged. No large pleural effusion. Osseous structures are intact. Soft tissues are unremarkable. XR/XR chest 2V IMPRESSION: No acute cardiopulmonary process. ? External Record Review External record reviewed: Prior outpatient labs Tests considered The following testing was considered but not selected: considered lab workup Prescription Management I considered prescription management with: Pain Medication, Antiviral (sxs too long for paxlovid, not clinically indicated) and Antibiotic (no PNA) Chronic Conditions Patient?s care impacted by: Other (active smoker) Critical Care Time Critical Care Time Critical Care Time: No Discharge Plan Discharge Clinical Impression: COVID-19 Patient Disposition: Home, Self-Care Instructions: Covid-19 Viral Syndrome and Novel Coronavirus (ED) Hey/Ath Additional Instructions: You were found to be COVID-19 POSITIVE today. Your chest x-ray and oxygen levels were normal. Rest. Drink plenty of fluids. Do not go out in public while you are not feeling well. Take over the counter cold/flu medications as needed for your symptoms. Take Tylenol and/or Motrin as needed for fevers and body aches. Follow up with your doctor this week. If you shortness of breath worsens , if you develop difficulty breathing or any other concerning symptom come back to the ER for further evaluation. Prescriptions: New benzonatate 100 mg capsule 100 mg PO TID PRN (Reason: cough) Qty: 30 0RF prednisone 20 mg tablet 40 mg PO DAILY Qty: 10 0RF albuterol sulfate 90 mcg/actuation HFA aerosol inhaler 2 puff inhalation Q6H PRN (Reason: shortness of breath or wheezing) Qty: 8.5 0RF No Action acetaminophen [Tylenol Extra Strength] 500 mg tablet 1,000 mg PO QID PRN (Reason: fever or pain) Qty: 10 0RF cyclobenzaprine 10 mg tablet 10 mg PO Q8H Qty: 10 0RF oxycodone 5 mg tablet 5 mg PO Q6H PRN (Reason: pain) Qty: 10 0RF Rx Instructions: Partial Fill upon patient request. hydrocodone-acetaminophen 5-325 mg tablet 1 tab PO Q8H PRN (Reason: pain, severe) 3 Days Qty: 9 0RF amoxicillin-pot clavulanate [Augmentin] 875-125 mg tablet 1 tab PO Q12H 7 Days Qty: 14 0RF Interventions: ED Discharge Assessment Last Done: 03/14/23 12:53 Discharge Date/Time: 03/14/23 12:53
== END 2023-03-14 12:53 | disposition home or self-care (01) ==
PROVIDERS: Emergency Provider Emergency Medicine
DX: U07.1 COVID-19 (principal); R06.02 Shortness of breath; R05.9 Cough, unspecified; R50.9 Fever, unspecified
CPT/HCPCS: 71046; 99282; 99283

== ENCOUNTER 2023-07-06 01:41 | Emergency (ER) | payer MEDICAID, SELFPAY ==
--- NOTE | 2023-07-06 | ECG_ITS ---
Test Reason : FALL Blood Pressure : / mmHG Vent. Rate : 068 BPM Atrial Rate : 068 BPM P-R Int : 168 ms QRS Dur : 086 ms QT Int : 420 ms P-R-T Axes : 061 010 023 degrees QTc Int : 446 ms Normal sinus rhythm Nonspecific ST abnormality Abnormal ECG No previous ECGs available Referred By: Generic ED Physician Electronically Signed By:SANA COWAN MD
--- NOTE | ~2023-07-06 | CT_ITS ---
EXAMINATION: NONCONTRAST HEAD CT NONCONTRAST CERVICAL SPINE CT INDICATION INFORMATION: Fall COMPARISON: 06/01/2022 TECHNIQUE: Separate noncontrast CT examinations of the head and cervical spine were performed. Coronal and sagittal images were created for each examination at the technologist workstation. This CT examination was performed using dose optimization techniques as appropriate, variously including the following: *Automated exposure control *Adjustment of mA and/or kV according to patient size (this includes techniques or standardized protocols for targeted exams where dose is matched to indication/reason for exam; i.e. extremities or head) *Use of iterative reconstruction technique DLP: 1079 mGy-cm FINDINGS: Head: There is no evidence of acute intracranial hemorrhage or territorial infarction. No abnormal mass effect or midline shift is seen. Castano to white matter differentiation is well preserved. No extra-axial fluid collections are identified. No hydrocephalus. No significant volume loss. There is no abnormal attenuation within the brain parenchyma. No acute osseous or soft tissue abnormality. The mastoid air cells and visualized portions of the paranasal sinuses are well aerated, apart from a mucous retention cyst in the left maxillary sinus.. Cervical spine: There is anatomic alignment of the vertebral bodies and posterior elements. The atlantoaxial and atlantooccipital articulations are intact. Vertebral body heights are maintained. Discogenic degenerative disease at C5-C6 with slight retrolisthesis of C5 over C6 on a chronic basis. There is at least mild bilateral neural foraminal narrowing at this level. No evidence of acute fracture. No prevertebral soft tissue swelling. Visualized portions of the lung apices are unremarkable. The thyroid gland is unremarkable. CT/CT cervical spine wo IV con IMPRESSION: * No acute intracranial bleed or territorial infarction. * No acute fractures of the calvarium or cervical spine.
--- NOTE | ~2023-07-06 | CT_ITS ---
EXAMINATION: CT ABDOMEN AND PELVIS WITHOUT CONTRAST CLINICAL INFORMATION: Fall COMPARISON: 06/01/2022 TECHNIQUE: Multidetector volumetric imaging was performed from the superior aspect of the liver through the pubic symphysis. Sagittal and coronal reformatted images were obtained on the technologist's workstation. This CT examination was performed using dose optimization techniques as appropriate, variously including the following: *Automated exposure control *Adjustment of mA and/or kV according to patient size (this includes techniques or standardized protocols for targeted exams where dose is matched to indication/reason for exam; i.e. extremities or head) *Use of iterative reconstruction technique DLP: 618 mGy-cm FINDINGS: LUNG BASES: The visualized lung bases are unremarkable. LIVER, GALLBLADDER, AND BILIARY TREE: The liver is normal in size, shape, and attenuation. No focal hepatic lesion or biliary ductal dilatation is present. The gallbladder is unremarkable with no evidence of radiopaque gallstones, gallbladder wall thickening, or obvious pericholecystic inflammatory changes. PANCREAS: Unremarkable. SPLEEN: Unremarkable. ADRENAL GLANDS: Unremarkable. KIDNEYS AND URETERS: The kidneys are normal in size, shape, and attenuation. No hydronephrosis, hydroureter, or calculi seen. No perinephric stranding. BLADDER: Unremarkable. GASTROINTESTINAL TRACT: Scattered distal colonic diverticula without evidence of diverticulitis. Normal appendix. Stomach and small bowel unremarkable. ABDOMINAL WALL: No significant hernia is appreciated. LYMPH NODES: Normal. VASCULAR: Unremarkable. PELVIC VISCERA: Hysterectomy. No adnexal abnormalities. SPINE: Acute mildly displaced fracture of the left lateral transverse process of L4. Acute minimally displaced fracture of the left lateral transverse process of L3, with adjacent chronic nonunited fracture of the tip of the left lateral transverse process of L3. Vertebral body heights maintained. Small endplate osteophytes throughout the lumbar spine. No traumatic malalignment. BONY PELVIS / HIPS: No fractures. Hip joints intact. REMAINING OSSEOUS STRUCTURES: No acute or suspicious osseous abnormalities.. CT/CT abdomen pelvis wo IV con IMPRESSION: * Acute mildly displaced fracture of the left lateral transverse process of L4. * Acute minimally displaced fracture of the left lateral transverse process of L3. * No additional fractures, with attention to the bony pelvis and left hip. * No acute visceral injury within the abdomen or pelvis. * Scattered distal colonic diverticula without evidence of diverticulitis. Fleischner guidelines were followed.
--- NOTE | ~2023-07-06 | XR_ITS ---
EXAMINATION: XR FOOT, RIGHT CLINICAL INFORMATION: Fall COMPARISON: 06/01/2022 TECHNIQUE: AP, lateral, and oblique views of the right foot. FINDINGS: No acute fracture or dislocation. Alignment is anatomic. Joint spaces are maintained. Small plantar calcaneal enthesophyte and Achilles insertional enthesophyte. XR/XR foot RT min 3V IMPRESSION: No acute fracture or dislocation.
[2023-07-06 01:52] VITALS: BP 140/92; BP 146/70; PULSE 71; RESP 20; TEMP 36.4; O2SAT 98; BMI 31.9
--- NOTE | 2023-07-06 02:23 | ED_ITS ---
HPI - Fall General Chief Complaint: Fall Stated Complaint: FALL Time Seen by Provider: 07/06/23 02:20 Source: patient Mode of arrival: EMS Limitations: no limitations History of Present Illness HPI Narrative: Patient around 00:30 while going downstairs to go to bathroom lost the step and fell about 6 steps complaining of pain in the lower back. Also complaining of headache. Denies any head injury no loss of consciousness no history of back pain in the past Related Data Previous Rx's Medication Instructions Recorded amoxicillin 875 mg-potassium 1 tab PO Q12H 7 days #14 tabs 05/30/21 clavulanate 125 mg tablet (Augmentin) hydrocodone 5 mg-acetaminophen 325 1 tab PO Q8H PRN pain, severe 3 05/30/21 mg tablet days #9 tabs acetaminophen 500 mg tablet 1,000 mg (2 x 500 mg) PO QID PRN 06/01/22 (Tylenol Extra Strength) fever or pain #10 tabs cyclobenzaprine 10 mg tablet 10 mg PO Q8H #10 tabs 06/01/22 oxycodone 5 mg tablet 5 mg PO Q6H PRN pain #10 tabs 06/01/22 albuterol sulfate 90 mcg/actuation 2 puff inhalation Q6H PRN 03/14/23 aerosol inhaler shortness of breath or wheezing #8.5 grams benzonatate 100 mg capsule 100 mg PO TID PRN cough #30 caps 03/14/23 prednisone 20 mg tablet 40 mg (2 x 20 mg) PO DAILY #10 tabs 03/14/23 cyclobenzaprine 10 mg tablet 10 mg PO Q8H #20 tabs 07/06/23 oxycodone 5 mg tablet 5 mg PO Q6H PRN pain #30 tabs 07/06/23 Allergies Allergy/AdvReac Type Severity Reaction Status Date / Time No Known Allergies Allergy Verified 07/06/23 03:06 Review of Systems 2 Review of Systems: Yes all other systems are reviewed and are negative PMF Past Medical History Medical History Depression Surgical History H/O: hysterectomy History of bladder surgery Social History Social History Alcohol intake: current Alcohol intake frequency: a few times a month Smoked in Last 30 Days: Yes Use of substances other than those prescribed or required for medical reasons: No Advance Directives: No Advance Directives Information Provided: No Patient : No Physical Exam 2 Vital Signs: Vital Signs: Last Vital Signs Temp 96.9 F 07/06/23 06:10 Pulse 59 07/06/23 06:10 Resp 12 07/06/23 06:10 BP 128/51 L 07/06/23 06:10 Pulse Ox 95 07/06/23 06:10 O2 Del Method Room Air 07/06/23 06:10 BMI result Body Mass Index 31.9 Appearance: Alert. Oriented X3. No acute distress. Eyes: PERRLA, No Nystagmus ENT: Pharynx normal. Oral Mucosa moist AT NC Neck: Normal inspection. Neck supple. No midline tenderness CVS: Normal heart rate and rhythm. Pulses normal. Respiratory: No respiratory distress. Equal air entry bilateral, no wheezing/rales/rhonchi Abdomen: Soft and nontender. Bowel sounds are present, no mass palpable, no CVA tenderness back: Tender to touch left side of lower lumbar vertebral L3-L4 no ecchymosis Skin: Skin warm and dry. Normal skin color. Normal skin turgor. Extremities: No lower extremity edema. No calf tenderness Neuro: Oriented X 3. No motor deficit. No sensory deficit.No cerebellar signs , cranial nerves II-XII intact Medications Administered Discontinued Medications Generic Name Dose Route Start Last Admin Trade Name Freq PRN Reason Stop Dose Admin Hydromorphone HCl 1 mg 07/06/23 03:56 07/06/23 04:02 Hydromorphone Hcl 1 Mg/Ml Syringe IVPUSH 07/06/23 03:57 1 mg ONCE ONE Administration Protocol Hydromorphone HCl 2 mg 07/06/23 04:32 07/06/23 04:58 Hydromorphone Hcl 2 Mg/Ml Vial IVPUSH 07/06/23 04:33 2 mg ONCE ONE Administration Protocol Morphine Sulfate 4 mg 07/06/23 02:57 07/06/23 03:05 Morphine Sulfate 4 Mg/Ml Cartridge IVPUSH 07/06/23 02:58 4 mg ONCE ONE Administration Protocol Ondansetron HCl 4 mg 07/06/23 02:57 07/06/23 03:05 Ondansetron Hcl 4 Mg/2 Ml Vial IVPUSH 07/06/23 02:58 4 mg ONCE ONE Administration Oxycodone HCl 10 mg 07/06/23 06:00 07/06/23 06:20 Oxycodone Hcl Immed Release 5 Mg Tablet PO 07/06/23 06:01 10 mg ONCE ONE Administration Medical Decision Making Medical Decision Making [facility] Narrative: Patient L3-L4 transverse process fracture on the left side status post fall case discussed with neurosurgeon at [facility] no need for any surgical intervention medical management for the pain patient has no neuro deficit able to ambulate head CT negative for acute no SDH no intracranial hemorrhage patient able to ambulate before discharge Differential Diagnosis Differential Diagnoses: The differential diagnosis associated with the presentation includes Lumbar vertebra fracture/intracranial hemorrhage/SDH Lab Data [facility] Lab Attestation statement: I reviewed the patient's lab results. 07/06/23 02:23 07/06/23 02:23 Labs: Lab Results 07/06/23 Range/Units 02:23 WBC 9.6 (4.8-10.8) X10*3/uL RBC 4.30 (4.20-5.50) X10*6/uL Hgb 13.6 (12.0-16.0) g/dl Hct 38.9 (37.0-47.0) % MCV 90.5 (80.0-98.0) fL MCH 31.6 (27.0-33.0) pg MCHC 35.0 (31.0-35.0) g/dl RDW 12.8 (11.0-16.0) % Plt Count 208 (160-400) X10*3/uL MPV 10.0 (9.4-12.3) fL Immature Gran % (Auto) 0.2 (0.0-0.4) % Neut % (Auto) 62.2 (45-73) % Lymph % (Auto) 26.5 (20-40) % Bureau % (Auto) 8.3 (2-11) % Eos % (Auto) 2.4 (0-4) % Baso % (Auto) 0.4 (0-2) % Lymph # (Auto) 2.5 (1.2-4.9) X10*3/uL Bureau # (Auto) 0.8 (0.1-1.2) X10*3/uL Eos # (Auto) 0.2 (0.0-0.4) X10*3/uL Baso # (Auto) 0.0 (0.0-0.2) X10*3/uL Abs Immat Gran (auto) 0.02 (0.00-0.03) X10*3/uL Absolute Neuts (auto) 6.0 (2.0-8.3) x10*3/uL Absolute Nucleated RBC 0.000 (0.0-0.012) X10*3/uL Nucleated RBC % (auto) 0.0 (0.0-0.2) /100WBC Sodium 140 (135-145) mmol/L Potassium 3.7 D (3.3-5.1) mmol/L Chloride 106 (96-108) mmol/L Carbon Dioxide 24 (22-29) mmol/L Anion Gap 14 (12-20) BUN 13 (9-16) mg/dL Creatinine 0.88 (0.5-1.4) mg/dL Estim Creat Clear Calc 67.9 Estimated GFR > 60 Random Glucose 100 (60-115) mg/dL Calcium 9.1 (8.4-10.2) mg/dL Total Bilirubin 0.3 (0.0-1.0) mg/dL AST 23 (5-31) U/L ALT 33 H (0-31) U/L Alkaline Phosphatase 90 (39-117) U/L Troponin I High Sens < 2.7 (<3.5-17.0) ng/L Total Protein 6.9 (6.5-8.0) g/dL Albumin 4.1 (3.5-5.0) g/dL Independent Interpretation I performed an independent interpretation of an: CT Scan Radiology Impression Discussion of test interpretation with radiology: I have reviewed the radiologist's reading. Radiologist Impression: CT/CT abdomen pelvis wo IV con IMPRESSION: * Acute mildly displaced fracture of the left lateral transverse process of L4. * Acute minimally displaced fracture of the left lateral transverse process of L3. * No additional fractures, with attention to the bony pelvis and left hip. * No acute visceral injury within the abdomen or pelvis. * Scattered distal colonic diverticula without evidence of diverticulitis. Discharge Plan Discharge Clinical Impression: Fracture of transverse process of lumbar vertebra Patient Disposition: Home, Self-Care Instructions: Acute Low Back Pain (ED) Additional Instructions: You have fracture of the transverse process of L3-L4 vertebra on the left side which is nonsurgical treatment Pain medication rest apply ice as advised Report to the ER if worsening of the pain/weakness of the leg or bladder incontinence Prescriptions: New oxycodone 5 mg tablet 5 mg PO Q6H PRN (Reason: pain) Qty: 30 0RF Rx Instructions: Partial Fill upon patient request. cyclobenzaprine 10 mg tablet 10 mg PO Q8H Qty: 20 0RF No Action acetaminophen [Tylenol Extra Strength] 500 mg tablet 1,000 mg PO QID PRN (Reason: fever or pain) Qty: 10 0RF cyclobenzaprine 10 mg tablet 10 mg PO Q8H Qty: 10 0RF oxycodone 5 mg tablet 5 mg PO Q6H PRN (Reason: pain) Qty: 10 0RF Rx Instructions: Partial Fill upon patient request. hydrocodone-acetaminophen 5-325 mg tablet 1 tab PO Q8H PRN (Reason: pain, severe) 3 Days Qty: 9 0RF amoxicillin-pot clavulanate [Augmentin] 875-125 mg tablet 1 tab PO Q12H 7 Days Qty: 14 0RF benzonatate 100 mg capsule 100 mg PO TID PRN (Reason: cough) Qty: 30 0RF prednisone 20 mg tablet 40 mg PO DAILY Qty: 10 0RF albuterol sulfate 90 mcg/actuation HFA aerosol inhaler 2 puff inhalation Q6H PRN (Reason: shortness of breath or wheezing) Qty: 8.5 0RF
[2023-07-06 02:30] LABS: Basophils Percent Auto 0.4 % (0-2); Eosinophils Absolute Auto 0.2 X10*3/uL (0.0-0.4); Eosinophils Percent Auto 2.4 % (0-4); Hematocrit 38.9 % (37.0-47.0); Hemoglobin 13.6 g/dl (12.0-16.0); Imm Gran Abs Auto 0.02 X10*3/uL (0.00-0.03); Imm Gran Pct Auto 0.2 % (0.0-0.4); Lymphocytes Absolute Auto 2.5 X10*3/uL (1.2-4.9); Lymphocytes Percent Auto 26.5 % (20-40); MANUAL DIFF FLAG NO; Mean Corpuscular Hemoglobin 31.6 pg (27.0-33.0); Mean Corpuscular Volume 90.5 fL (80.0-98.0); Monocytes Absolute Auto 0.8 X10*3/uL (0.1-1.2); Monocytes Percent Auto 8.3 % (2-11); Neutrophils Percent Auto 62.2 % (45-73); Platelet Count 208 X10*3/uL (160-400); Red Cell Distribution Width 12.8 % (11.0-16.0); White Blood Count 9.6 X10*3/uL (4.8-10.8)
[2023-07-06 02:42] LABS: Alanine Aminotransferase 33 U/L (0-31); Albumin Level 4.1 g/dL (3.5-5.0); Alkaline Phosphatase 90 U/L (39-117); Anion Gap 14 (12-20); Aspartate Amino Transferase 23 U/L (5-31); Bilirubin Total 0.3 mg/dL (0.0-1.0); Blood Urea Nitrogen 13 mg/dL (9-16); Calcium 9.1 mg/dL (8.4-10.2); Carbon Dioxide 24 mmol/L (22-29); Chloride 106 mmol/L (96-108); Creatinine Clr Calc Pharmacy 67.9; Estimated Glomerular Filt Rate > 60; Glucose Random 100 mg/dL (60-115); Potassium 3.7 mmol/L (3.3-5.1); Sodium 140 mmol/L (135-145); Total Protein 6.9 g/dL (6.5-8.0)
[2023-07-06] MEDS: ondansetron HCL 4 MG/2 ML VIAL IVPUSH (03:05)
[2023-07-06] MEDS: Morphine Sulfate 4 MG/ML CARTRIDGE IVPUSH (03:05)
[2023-07-06 03:32] LABS: Troponin-I High Sensitivity < 2.7 ng/L (<3.5-17.0)
--- NOTE | 2023-07-06 03:32 | PC.NURSE ---
pt medicated per MAR for pain. pt reports it did not help. pt in XR/CT now
--- NOTE | 2023-07-06 03:38 | PC.NURSE ---
pt reporting feet, L knee, L hip, mid/lower back (10/10), neck, and head pain. C collar in place. pt reports chest pain to EMS, given aspirin en route. chest pain since resolved. pt reporting episodes of dizziness. placed on monitor.
[2023-07-06] MEDS: HYDROmorphone HCl 1 MG/ML SYRINGE IVPUSH (04:02)
[2023-07-06 04:58] VITALS: BP 123/60; PULSE 86; RESP 12; TEMP 36.7; O2SAT 98
[2023-07-06] MEDS: HYDROmorphone HCl 2 MG/ML VIAL IVPUSH (04:58)
--- NOTE | 2023-07-06 05:23 | PC.NURSE ---
C collar removed by provider. pt medicated per MAR. pt incont urine. pt cleaned up and bed changed.
[2023-07-06 06:10] VITALS: BP 128/51; PULSE 59; RESP 12; TEMP 36.1; O2SAT 95
[2023-07-06] MEDS: oxyCODONE HCl Immed Release 5 MG TABLET 10 MG PO (06:20)
--- NOTE | 2023-07-06 06:25 | PC.NURSE ---
pt reported her nose was extremely itchy after admin of dilaudid. sx have now subsided.
--- NOTE | 2023-07-06 06:52 | PC.NURSE ---
pt now reporting her whole face, and stomach are itchy as well. MD aware
[2023-07-06] MEDS: diphenhydrAMINE HCL 50 MG/ML VIAL 25 MG IVPUSH (07:19)
--- NOTE | 2023-07-06 07:42 | PC.NURSE ---
pt able to ambulated with great difficulty using a walker. informed pt of risk of going home, necessity of going to PT and being active at home. pt aware, requesting to go home. request made from MD to order walker for pt
== END 2023-07-06 08:14 | disposition home or self-care (01) ==
PROVIDERS: Emergency Provider Internal Medicine
DX: S32.039A Unspecified fracture of third lumbar vertebra, initial encounter for closed fracture (principal); S32.049A Unspecified fracture of fourth lumbar vertebra, initial encounter for closed fracture; R51.9 Headache, unspecified; W10.9XXA Fall (on) (from) unspecified stairs and steps, initial encounter; Y93.9 Activity, unspecified; Y92.9 Unspecified place or not applicable; Y99.9 Unspecified external cause status
CPT/HCPCS: 36415; 70450; 72125; 73630; 74176; 80053; 84484; 85025; 93005; 96374; 96375; 96376; 99284; 99285; J1170; J1200; J2270; J2405

== ENCOUNTER → 2023-07-06 01:55 | Outpatient (BNV) | payer MEDICAID, SELFPAY | PROVIDERS: Emergency Provider Internal Medicine; Visit Provider Internal Medicine Cardiovascular Disease | DX: R94.31 Abnormal electrocardiogram [ECG] [EKG] (principal); W19.XXXA Unspecified fall, initial encounter | CPT/HCPCS: 93010 ==

== ENCOUNTER 2023-08-06 00:10 | Emergency (ER) | payer MEDICAID, SELFPAY ==
--- NOTE | 2023-08-06 | ECG_ITS ---
Test Reason : CHEST PAIN Blood Pressure : / mmHG Vent. Rate : 094 BPM Atrial Rate : 094 BPM P-R Int : 132 ms QRS Dur : 088 ms QT Int : 362 ms P-R-T Axes : 030 011 034 degrees QTc Int : 452 ms Normal sinus rhythm Nonspecific ST abnormality Abnormal ECG When compared with ECG of 06-JUL-2023 01:55, No significant change was found Referred By: Generic ED Physician Electronically Signed By:Maximo Barajas
[2023-08-06 00:39] LABS: MANUAL DIFF FLAG NO
[2023-08-06 00:48] VITALS: BP 139/67; PULSE 83; RESP 18; TEMP 36.6; O2SAT 94; BMI 32.1
[2023-08-06 00:52] LABS: Basophils Percent Auto 0.4 % (0-2); Eosinophils Absolute Auto 0.2 X10*3/uL (0.0-0.4); Eosinophils Percent Auto 3.2 % (0-4); Hematocrit 42.4 % (37.0-47.0); Hemoglobin 14.9 g/dl (12.0-16.0); Imm Gran Abs Auto 0.02 X10*3/uL (0.00-0.03); Imm Gran Pct Auto 0.3 % (0.0-0.4); Lymphocytes Absolute Auto 2.8 X10*3/uL (1.2-4.9); Lymphocytes Percent Auto 38.2 % (20-40); Mean Corpuscular HGB Conc 35.1 g/dl (31.0-35.0); Mean Corpuscular Hemoglobin 31.4 pg (27.0-33.0); Mean Corpuscular Volume 89.5 fL (80.0-98.0); Mean Platelet Volume 10.1 fL (9.4-12.3); Monocytes Absolute Auto 0.7 X10*3/uL (0.1-1.2); Monocytes Percent Auto 9.6 % (2-11); Neutrophils Absolute Auto 3.5 x10*3/uL (2.0-8.3); Neutrophils Percent Auto 48.3 % (45-73); Platelet Count 230 X10*3/uL (160-400); Red Blood Count 4.74 X10*6/uL (4.20-5.50); Red Cell Distribution Width 12.8 % (11.0-16.0); White Blood Count 7.3 X10*3/uL (4.8-10.8)
[2023-08-06 01:11] LABS: Alanine Aminotransferase 32 U/L (0-31); Albumin Level 4.4 g/dL (3.5-5.0); Alkaline Phosphatase 87 U/L (39-117); Anion Gap 15 (12-20); Aspartate Amino Transferase 20 U/L (5-31); Bilirubin Total 0.5 mg/dL (0.0-1.0); Blood Urea Nitrogen 10 mg/dL (9-16); Calcium 9.2 mg/dL (8.4-10.2); Carbon Dioxide 23 mmol/L (22-29); Chloride 104 mmol/L (96-108); Creatinine Clr Calc Pharmacy 76.8; Estimated Glomerular Filt Rate > 60; Glucose Random 105 mg/dL (60-115); Potassium 3.8 mmol/L (3.3-5.1); Sodium 138 mmol/L (135-145); Total Protein 7.5 g/dL (6.5-8.0); Troponin-I High Sensitivity < 2.7 ng/L (<3.5-17.0)
[2023-08-06 04:21] VITALS: BP 158/69; PULSE 74; RESP 16; TEMP 36.4; O2SAT 93
[2023-08-06 06:05] VITALS: BP 141/76; PULSE 71; RESP 14; TEMP 36.6; O2SAT 91
[2023-08-06 06:16] LABS: IDNOW Serial# 08D9AD1C; Strep A Nucleic Acid Negative (Negative)
[2023-08-06 06:23] LABS: IDNOW Serial# 152EDE1D; Influenza A Negative (Negative); Influenza B2 Negative (Negative)
--- NOTE | 2023-08-06 06:25 | ED_ITS ---
HPI - General Adult General Chief complaint: General Medical Stated complaint: high bp/cp Time Seen by Provider: 08/06/23 05:19 Source: patient Mode of arrival: ambulatory History of Present Illness HPI narrative: 63-year-old female presents with mid chest pain as well as feelings of being shaky/dizzy and lightheaded since yesterday morning. Patient also noted that this evening her blood pressure was elevated. In addition, she has significant planes regarding swallowing and states that she has not been followed up by a rock cutter for 4-5 years. She feels like she gets something 2nd her throat when she swallows. Patient does report diaphoresis and clammy hands with the chest pain and states that she has had some pain into bilateral neck as well. Related Data Previous Rx's Medication Instructions Recorded amoxicillin 875 mg-potassium 1 tab PO Q12H 7 days #14 tabs 05/30/21 clavulanate 125 mg tablet (Augmentin) hydrocodone 5 mg-acetaminophen 325 1 tab PO Q8H PRN pain, severe 3 05/30/21 mg tablet days #9 tabs acetaminophen 500 mg tablet 1,000 mg (2 x 500 mg) PO QID PRN 06/01/22 (Tylenol Extra Strength) fever or pain #10 tabs cyclobenzaprine 10 mg tablet 10 mg PO Q8H #10 tabs 06/01/22 oxycodone 5 mg tablet 5 mg PO Q6H PRN pain #10 tabs 06/01/22 albuterol sulfate 90 mcg/actuation 2 puff inhalation Q6H PRN 03/14/23 aerosol inhaler shortness of breath or wheezing #8.5 grams benzonatate 100 mg capsule 100 mg PO TID PRN cough #30 caps 03/14/23 prednisone 20 mg tablet 40 mg (2 x 20 mg) PO DAILY #10 tabs 03/14/23 cyclobenzaprine 10 mg tablet 10 mg PO Q8H #20 tabs 07/06/23 oxycodone 5 mg tablet 5 mg PO Q6H PRN pain #30 tabs 07/06/23 walker #1 ea 07/06/23 Allergies Allergy/AdvReac Type Severity Reaction Status Date / Time hydromorphone [From Dilaudid] AdvReac Itching Verified 08/06/23 01:00 Review of Systems 2 Review of Systems: Pertinent positives and negatives as stated in HPI [facility] Past Medical History Source: nursing notes reviewed Medical History Depression Surgical History History of bladder surgery H/O: hysterectomy Social History Social History Alcohol intake: current Alcohol intake frequency: a few times a month Advance Directives: No Advance Directives Information Provided: No Physical Exam ED Vital Signs: Vital Signs - 24 hr 08/06/23 00:48 08/06/23 04:21 08/06/23 06:05 Temperature 97.9 F 97.6 F 97.8 F Pulse Rate 83 74 71 Respiratory Rate 18 16 14 Blood Pressure 139/67 158/69 H 141/76 H Pulse Oximetry 94 93 91 L Oxygen Delivery Method Room Air Room Air Room Air BMI result Body Mass Index 32.1 VITAL SIGNS: Reviewed. GENERAL: Well developed, well nourished, in no acute distress. HEAD: Normocephalic/atraumatic EYES: PERRLA, EOMI EARS: Ext canals without abnormality NOSE: Nares patent bilateral OROPHARYNX: no oral lesions noted, posterior pharynx clear NECK: Supple, no adenopathy LUNGS: Normal breath sounds. No adventitious sounds or accessory muscle use. SpO2<91> CARDIOVASCULAR: Regular rate and rhythm without noted murmurs ABDOMEN: Soft, non-tender, non-distended with bowel sounds. MUSCULOSKELETAL: No tenderness, deformities, or effusions noted on gross inspection. EXTREMITIES: No cyanosis, clubbing or edema. SKIN: Inspection of the skin reveals no rashes NEUROLOGIC: Alert and oriented x 4. Strength and sensation to light touch were grossly intact x 4. Medical Decision Making Medical Decision Making MDM Narrative: 63-year-old female with history and clinical presentation, DDX: Acid reflux/GERD, low clinical suspicion but possibility of viral illness/pneumonia, doubt ACS. I reviewed all investigations and hematologic indices are negative for leukocytosis/left shift and there is no anemia or thrombocytopenia. Chemistry indices are negative for evidence of KAMILLA/electrolyte or liver enzyme derangements. I sensitivity troponin is undetectable. Viral testing is negative for influenza/strep. Patient is requesting to leave and is otherwise hemodynamically stable, and has walked out of the emergency room. Differential Diagnosis Differential Diagnoses: The differential diagnosis associated with the presentation includes Please see the discussion above Lab Data MDM Lab Attestation statement: I reviewed the patient's lab results. Please see the discussion above 08/06/23 00:32 08/06/23 00:32 Labs: Lab Results 08/06/23 08/06/23 Range/Units 00:32 06:03 WBC 7.3 (4.8-10.8) X10*3/uL RBC 4.74 (4.20-5.50) X10*6/uL Hgb 14.9 (12.0-16.0) g/dl Hct 42.4 (37.0-47.0) % MCV 89.5 (80.0-98.0) fL MCH 31.4 (27.0-33.0) pg MCHC 35.1 H (31.0-35.0) g/dl RDW 12.8 (11.0-16.0) % Plt Count 230 (160-400) X10*3/uL MPV 10.1 (9.4-12.3) fL Immature Gran % (Auto) 0.3 (0.0-0.4) % Neut % (Auto) 48.3 (45-73) % Lymph % (Auto) 38.2 (20-40) % [facility] % (Auto) 9.6 (2-11) % Eos % (Auto) 3.2 (0-4) % Baso % (Auto) 0.4 (0-2) % Lymph # (Auto) 2.8 (1.2-4.9) X10*3/uL [facility] # (Auto) 0.7 (0.1-1.2) X10*3/uL Eos # (Auto) 0.2 (0.0-0.4) X10*3/uL Baso # (Auto) 0.0 (0.0-0.2) X10*3/uL Abs Immat Gran (auto) 0.02 (0.00-0.03) X10*3/uL Absolute Neuts (auto) 3.5 (2.0-8.3) x10*3/uL Absolute Nucleated RBC 0.000 (0.0-0.012) X10*3/uL Nucleated RBC % (auto) 0.0 (0.0-0.2) /100WBC Sodium 138 (135-145) mmol/L Potassium 3.8 (3.3-5.1) mmol/L Chloride 104 (96-108) mmol/L Carbon Dioxide 23 (22-29) mmol/L Anion Gap 15 (12-20) BUN 10 (9-16) mg/dL Creatinine 0.78 (0.5-1.4) mg/dL Estim Creat Clear Calc 76.8 Estimated GFR > 60 Random Glucose 105 (60-115) mg/dL Calcium 9.2 (8.4-10.2) mg/dL Total Bilirubin 0.5 (0.0-1.0) mg/dL AST 20 (5-31) U/L ALT 32 H (0-31) U/L Alkaline Phosphatase 87 (39-117) U/L Troponin I High Sens < 2.7 (<3.5-17.0) ng/L Total Protein 7.5 (6.5-8.0) g/dL Albumin 4.4 (3.5-5.0) g/dL Influenza Type A (MAN) Negative (Negative) Influenza Type B (MAN) Negative (Negative) Influenza A & B Note See Note S. pyogenes GrpA MAN Negative (Negative) Independent Interpretation I performed an independent interpretation of an: EKG Interpretation: Normal sinus rhythm, HR-94, no STEMI, FL/QRS/QTC is within normal limits. Radiology Impression Discussion of test interpretation with radiology: I have reviewed the radiologist's reading. Radiologist Impression: Please see the discussion above External Record Review External record reviewed: Outpatient record, Prior outpatient labs and Prior outpatient radiology Critical Care Time Critical Care Time Critical Care Time: Yes Total Critical Care Time: 30 Attestation: I personally attest to this time spent taking care of the patient. Discharge Plan Discharge Clinical Impression: Chest pain, Gastroesophageal reflux disease Patient Disposition: Home, Self-Care Instructions: Chest Pain (ED), Diet for Stomach Ulcers and Gastritis (ED), Gastroesophageal Reflux Disease (ED) Additional Instructions: 1. Resume all home medications as prescribed. 2. Recommend follow-up with your primary care doctor in discussion for referral to see gastroenterology. Return to the ER for any worsening symptoms. Prescriptions: No Action acetaminophen [Tylenol Extra Strength] 500 mg tablet 1,000 mg PO QID PRN (Reason: fever or pain) Qty: 10 0RF cyclobenzaprine 10 mg tablet 10 mg PO Q8H Qty: 10 0RF oxycodone 5 mg tablet 5 mg PO Q6H PRN (Reason: pain) Qty: 10 0RF Rx Instructions: Partial Fill upon patient request. hydrocodone-acetaminophen 5-325 mg tablet 1 tab PO Q8H PRN (Reason: pain, severe) 3 Days Qty: 9 0RF amoxicillin-pot clavulanate [Augmentin] 875-125 mg tablet 1 tab PO Q12H 7 Days Qty: 14 0RF oxycodone 5 mg tablet 5 mg PO Q6H PRN (Reason: pain) Qty: 30 0RF Rx Instructions: Partial Fill upon patient request. cyclobenzaprine 10 mg tablet 10 mg PO Q8H Qty: 20 0RF (DME) walker Misc See Rx Instructions .Route Qty: 1 0RF Rx Instructions: As directed benzonatate 100 mg capsule 100 mg PO TID PRN (Reason: cough) Qty: 30 0RF prednisone 20 mg tablet 40 mg PO DAILY Qty: 10 0RF albuterol sulfate 90 mcg/actuation HFA aerosol inhaler 2 puff inhalation Q6H PRN (Reason: shortness of breath or wheezing) Qty: 8.5 0RF
--- NOTE | 2023-08-06 06:26 | PC.NURSE ---
pt up out of bed, uses cane to rip curtain open, begins to yell at this RN that laughing and talking should not be happening in a hospital. states shes in pain and with a headache and staff should not be talking. states It's not funny and I've had enough! explained that multiple conversations happen in the ER between colleagues in regards to patient care. states I understand rounds need to happen but you shouldn't be laughing and in a good mood! this RN apologized for the volume to which pt states It doesn't matter I've had enough! pt then closes curtain w/ her cane on this RN.
--- NOTE | 2023-08-06 06:32 | PC.NURSE ---
pt rang call kaylee; upon entering patient room she begins to yell I want this fucking IV out! Im here in pain with a migraine and fucking broken back and you don't fucking care! when attempting to speak to patient she yells you're not doing anything to fucking help me you think this is a joke and it's not funny! another staff member went in to assist w/ speaking to patient. she continues to yell You guys are conversating at the nurses station and this is a fucking hospital you shouldn't be talking! I want my discharge papers and I want fucking out. this RN removed IV. MD made aware that pt is upset and would like to leave. as this RN was talking to MD pt walks out of her room and heading towards exit. as attempts to speak to pt she states I don't fucking want anything from you. I'll be reporting you all to your chief. pt then ambulated w/ steady gait towards the exit.
== END 2023-08-06 06:45 | disposition home or self-care (01) ==
PROVIDERS: Emergency Provider Student in an Organized Health Care Education/Training Program
DX: R07.89 Other chest pain (principal); K21.9 Gastro-esophageal reflux disease without esophagitis; R42 Dizziness and giddiness; M54.2 Cervicalgia; Z79.899 Other long term (current) drug therapy
CPT/HCPCS: 36415; 80053; 84484; 85025; 87502; 87651; 93005; 99283; 99284

== ENCOUNTER → 2023-08-06 00:25 | Outpatient (BNV) | payer MEDICAID, SELFPAY | PROVIDERS: Emergency Provider Student in an Organized Health Care Education/Training Program; Visit Provider Internal Medicine Cardiovascular Disease | DX: R94.31 Abnormal electrocardiogram [ECG] [EKG] (principal); R07.9 Chest pain, unspecified | CPT/HCPCS: 93010 ==

== ENCOUNTER 2023-11-15 19:23 | Emergency (ER) | payer OTHER, SELFPAY ==
[2023-11-15 19:32] VITALS: BP 119/77; PULSE 83; RESP 18; TEMP 36.6; O2SAT 99; BMI 30.3
--- NOTE | 2023-11-15 20:25 | ED_ITS ---
HPI - Skin/Abscess/Foreign Bdy General Chief complaint: Extremity Problem Stated complaint: LT thumb lac Time Seen by Provider: 11/15/23 19:44 Source: patient Mode of arrival: ambulatory Limitations: no limitations History of Present Illness HPI narrative: Patient is a 63-year-old female who presents emergency department for evaluation of laceration to the distal tip of the left thumb. She reports approximately 4 hours prior to arrival she was using electric garden grecia when she accidentally cut the tip of the finger. She is not aware of the date of her last tetanus vaccination but knows it has been more than 10 years. She reports bleeding initially but bleeding has since been controlled. She washed the area with water and soap. Denies any numbness tingling or pain to the finger. Related Data Previous Rx's ?Medication ?Instructions ?Recorded amoxicillin 875 mg-potassium 1 tab PO Q12H 7 days #14 tabs 05/30/21 clavulanate 125 mg tablet (Augmentin) hydrocodone 5 mg-acetaminophen 325 1 tab PO Q8H PRN pain, severe 3 05/30/21 mg tablet days #9 tabs acetaminophen 500 mg tablet 1,000 mg (2 x 500 mg) PO QID PRN 06/01/22 (Tylenol Extra Strength) fever or pain #10 tabs cyclobenzaprine 10 mg tablet 10 mg PO Q8H #10 tabs 06/01/22 oxycodone 5 mg tablet 5 mg PO Q6H PRN pain #10 tabs 06/01/22 albuterol sulfate 90 mcg/actuation 2 puff inhalation Q6H PRN 03/14/23 aerosol inhaler shortness of breath or wheezing #8.5 grams benzonatate 100 mg capsule 100 mg PO TID PRN cough #30 caps 03/14/23 prednisone 20 mg tablet 40 mg (2 x 20 mg) PO DAILY #10 tabs 03/14/23 cyclobenzaprine 10 mg tablet 10 mg PO Q8H #20 tabs 07/06/23 oxycodone 5 mg tablet 5 mg PO Q6H PRN pain #30 tabs 07/06/23 walker #1 ea 07/06/23 Allergies Allergy/AdvReac Type Severity Reaction Status Date / Time hydromorphone [From Dilaudid] AdvReac Mild Itching Verified 11/15/23 19:40 Review of Systems Review of Systems: Yes all other systems are reviewed and are negative [facility] Past Medical History Attestation statement: The following information was validated with the patient. Source: old records reviewed Medical History Depression Surgical History History of bladder surgery H/O: hysterectomy Social History Social History Alcohol intake: current Alcohol intake frequency: a few times a month Advance Directives: No Advance Directives Information Provided: No Physical Exam Vital Signs: Vital Signs: Last Vital Signs Temp 97.9 F 11/15/23 19:32 Pulse 83 11/15/23 19:32 Resp 18 11/15/23 19:32 BP 119/77 11/15/23 19:32 Pulse Ox 99 11/15/23 19:32 O2 Del Method Room Air 11/15/23 19:32 BMI result Body Mass Index 30.3 Appearance: Alert.?Oriented to person, place and time. No acute distress.?Normal affect. Neck: Normal inspection.? Neck supple.?? CVS: Heart sounds normal. Normal heart rate and rhythm.? Pulses normal.?? Respiratory: No respiratory distress.? Lung sounds clear to auscultation bilaterally?? Skin: Skin warm and dry.? Normal skin color.? Superficial 1 cm vertical laceration to the distal tip of the left thumb? without involvement of the nail bed, in no subungual hematoma Neuro: Moves all extremities spontaneously. Ambulates with normal steady gait. Medical Decision Making Medical Decision Making MDM Narrative: patient is a 63-year-old female who presents emergency department for evaluation of a laceration to the distal left thumb as per HPI. Very s uperficial laceration, small scabbed area present at this time. Does not require repair with sutures. Nail bed is intact, no subungual hematoma. Full range of motion to the finger. Nontender upon palpation. Have low suspicion for any osseous involvement, would defer any XR imaging. Tdap was updated today. Reviewed worrisome signs and symptoms that would warrant re-evaluation in the emergency department, outpatient follow-up with her primary care provider as needed. Differential Diagnosis Differential Diagnoses: The differential diagnosis associated with the presentation includes ( See narrative above) External Record Review External record reviewed: Outpatient record Prescription Management I considered prescription management with: Pain Medication ( acetaminophen/ibuprofen) and Antibiotic ( topical bacitracin) Discharge Plan Discharge Clinical Impression: Laceration of finger Patient Disposition: Home, Self-Care Instructions: Finger Laceration (ED) Additional Instructions: you can apply bacitracin or Neosporin to the area twice daily after cleaning with warm water and non scented soap. Your tetanus vaccine was updated today. Return back to emergency department any new or worsening symptoms or concerns. Follow-up with your primary care provider as needed. If you develop redness, swelling, pus-like discharge, pain, fevers, chills than have this re-evaluated. Prescriptions: No Action acetaminophen [Tylenol Extra Strength] 500 mg tablet 1,000 mg PO QID PRN (Reason: fever or pain) Qty: 10 0RF cyclobenzaprine 10 mg tablet 10 mg PO Q8H Qty: 10 0RF oxycodone 5 mg tablet 5 mg PO Q6H PRN (Reason: pain) Qty: 10 0RF Rx Instructions: Partial Fill upon patient request. hydrocodone-acetaminophen 5-325 mg tablet 1 tab PO Q8H PRN (Reason: pain, severe) 3 Days Qty: 9 0RF amoxicillin-pot clavulanate [Augmentin] 875-125 mg tablet 1 tab PO Q12H 7 Days Qty: 14 0RF oxycodone 5 mg tablet 5 mg PO Q6H PRN (Reason: pain) Qty: 30 0RF Rx Instructions: Partial Fill upon patient request. cyclobenzaprine 10 mg tablet 10 mg PO Q8H Qty: 20 0RF (DME) [facility] [place] See Rx Instructions .Route Qty: 1 0RF Rx Instructions: As directed benzonatate 100 mg capsule 100 mg PO TID PRN (Reason: cough) Qty: 30 0RF prednisone 20 mg tablet 40 mg PO DAILY Qty: 10 0RF albuterol sulfate 90 mcg/actuation HFA aerosol inhaler 2 puff inhalation Q6H PRN (Reason: shortness of breath or wheezing) Qty: 8.5 0RF Referrals: Physician,Unknown J [Primary Care Provider] - Print Language: [place]
[2023-11-15] MEDS: Diphth,Pertus(ACell),Tet Adult 0.5 ML SYRINGE IM (20:33)
[2023-11-15 20:49] VITALS: BP 119/77; PULSE 83; RESP 18; TEMP 36.1; O2SAT 99
== END 2023-11-15 20:49 | disposition home or self-care (01) ==
PROVIDERS: Emergency Provider Emergency Medicine Emergency Medical Services
DX: S61.012A Laceration without foreign body of left thumb without damage to nail, initial encounter (principal); W27.1XXA Contact with garden tool, initial encounter; Y93.H2 Activity, gardening and landscaping; Y92.007 Garden or yard of unspecified non-institutional (private) residence as the place of occurrence of the external cause; Y99.9 Unspecified external cause status; Z23 Encounter for immunization
CPT/HCPCS: 90471; 90715; 99282; 99284